=== PATIENT | male | born 1965 | race Caucasian/White ===

== ENCOUNTER → 2021-05-20 | Outpatient (CLI) | payer SELFPAY | LOC: M LABSMTC 10:48 | PROVIDERS: ATTEND Pediatrics | DX: Z11.52 Encounter for screening for COVID-19 (principal) ==

== ENCOUNTER → 2021-08-30 | Outpatient (CLI) | payer OTHER ==
--- NOTE | 2021-08-30 09:12 | REP ---
INDICATION: RT KNEE PAIN. COMPARISON: None. TECHNIQUE: An AP image of both knees, and a lateral view and a sunrise view of the right knee were obtained. FINDINGS: There is mild arthritis of the patellofemoral joint of the right knee. There is a moderate knee joint effusion. The periarticular soft tissues are unremarkable. The AP view of the left knee demonstrates mild arthritis of the medial joint space compartment. There are no soft tissue abnormalities. IMPRESSION: 1. Mild arthritis of the right knee with a moderate knee joint effusion. 2. Mild arthritis of the medial joint space compartment of the left knee. <Electronically signed by Emile Robin > 08/30/21 0922
== END ==
LOC: M SOG 07:58
PROVIDERS: ATTEND Orthopaedic Surgery Adult Reconstructive Orthopaedic Surgery
DX: M17.11 Unilateral primary osteoarthritis, right knee (principal)

== ENCOUNTER → 2021-10-28 | Outpatient (CLI) | payer OTHER | LOC: M PLAIMG 10:30 | PROVIDERS: ATTEND Orthopaedic Surgery Adult Reconstructive Orthopaedic Surgery | DX: S83.231A Complex tear of medial meniscus, current injury, right knee, initial encounter (principal); X58.XXXA Exposure to other specified factors, initial encounter; Y92.9 Unspecified place or not applicable; Y93.9 Activity, unspecified; Y99.9 Unspecified external cause status; M94.261 Chondromalacia, right knee; M25.461 Effusion, right knee; M71.21 Synovial cyst of popliteal space [Baker], right knee ==

== ENCOUNTER → 2022-05-08 | Outpatient (CLI) | payer OTHER ==
[~2022-05-08] MED LIST: MULT-90 PO
== END ==
LOC: M LABSMTC 10:23
PROVIDERS: ATTEND Anesthesiology
DX: Z01.812 Encounter for preprocedural laboratory examination (principal)

== ENCOUNTER 2022-05-10 07:21 | Day surgery (SDC) | payer OTHER ==
[~2022-05-10] VITALS: Ht 177.8 cm; Wt 95.7 kg
[~2022-05-10 07:21] MED LIST changes: +ACETAMINOPHEN 500 MG TAB PO ONE; +CelecoXIB 400 MG CAP PO ONE; +GABAPENTIN 300 MG CAP PO ONE; +ONDANSETRON 4MG 2ML VIAL IV ONE
[2022-05-10] MEDS ORDERED: LR 1,000 ML IV SCH ×3 (07:30→10:50)
[2022-05-10] MEDS ORDERED: BUPIVACAINE/EPIN 0.5% 30 ML VIAL As Ordered ONE (07:49)
[2022-05-10] MEDS ORDERED: EPINEPHrine 1MG/ML INJ 30ML MD-VIAL As Ordered ONE (07:49)
[2022-05-10] MEDS ORDERED: MIDAZOLAM INJ 2MG/2ML VIAL (J2250 PER 1MG) As Ordered ONE (07:53)
[2022-05-10] MEDS ORDERED: fentaNYL 100 MCG/2 ML INJECTION As Ordered ONE (07:53)
[2022-05-10] MEDS ORDERED: LIDOCAINE 2% INJ 100 MG/5 ML SYRINGE As Ordered ONE (07:55)
[2022-05-10] MEDS ORDERED: propofoL 200 MG/20 ML VIAL As Ordered ONE (07:55)
[2022-05-10] MEDS ORDERED: ACETAMINOPHEN 1000MG 100ML IV BTL (OFIRMEV) (J0131 PER 10MG) As Ordered ONE (07:59)
[2022-05-10] MEDS ORDERED: ROCURONIUM BROMIDE 50 MG/5 ML VIAL As Ordered ONE (08:00)
[2022-05-10] MEDS ORDERED: ePHEDrine SULFATE 25 MG/5 ML(5MG/ML) SYRINGE As Ordered ONE (08:46)
[2022-05-10] MEDS ORDERED: fentaNYL 100 MCG/2 ML INJECTION IV PRN (09:55)
[2022-05-10] MEDS ORDERED: HYDROMORPHONE HCL 0.5 MG/ 0.5 ML SYRINGE (J1170 PER 1) IV PRN (09:55)
[2022-05-10] MEDS ORDERED: ONDANSETRON 4MG 2ML VIAL IV PRN (09:55)
[2022-05-10] MEDS ORDERED: oxyCODONE 5MG TAB PO PRN (09:55)
[2022-05-10 12:21] VITALS: BP 116/76
== END 2022-05-10 13:10 | disposition home or self-care (01) ==
LOC: M SDC 07:21
PROVIDERS: ATTEND Orthopaedic Surgery Adult Reconstructive Orthopaedic Surgery
DX: M23.203 Derangement of unspecified medial meniscus due to old tear or injury, right knee (principal); M17.11 Unilateral primary osteoarthritis, right knee; Z85.71 Personal history of Hodgkin lymphoma
CPT/HCPCS: 29882; 93005; 97162; 97530; C1713; J0171; J2250; J2405; J3010

== ENCOUNTER → 2022-09-22 | Outpatient (CLI) | payer OTHER ==
[~2022-09-22] MED LIST changes: -ACETAMINOPHEN 500 MG TAB PO ONE; -CelecoXIB 400 MG CAP PO ONE; -GABAPENTIN 300 MG CAP PO ONE; +ISOVUE-370 76% 100ML VIAL As Ordered ONE; -ONDANSETRON 4MG 2ML VIAL IV ONE
== END ==
LOC: M RAD 16:31
PROVIDERS: ATTEND Otolaryngology
DX: Z85.72 Personal history of non-Hodgkin lymphomas (principal)

== ENCOUNTER → 2023-01-23 | Outpatient (CLI) | payer OTHER | LOC: M RAD 09:10 | PROVIDERS: ATTEND Otolaryngology | DX: R22.1 Localized swelling, mass and lump, neck (principal) ==